=== PATIENT | male | born 1980 | race African-American/Black ===

== ENCOUNTER 2022-09-17 19:00 | Outpatient (CLI) | payer BC | END 2022-09-17 19:01 | disposition home or self-care (01) | LOC: SLEEPLAB 19:00 | PROVIDERS: ATTEND Specialist | DX: G47.33 Obstructive sleep apnea (adult) (pediatric) (principal); F51.9 Sleep disorder not due to a substance or known physiological condition, unspecified; G47.10 Hypersomnia, unspecified; R53.83 Other fatigue; R40.0 Somnolence; R09.89 Other specified symptoms and signs involving the circulatory and respiratory systems; G31.84 Mild cognitive impairment of uncertain or unknown etiology; E66.9 Obesity, unspecified; K21.9 Gastro-esophageal reflux disease without esophagitis; R06.83 Snoring; Z68.36 Body mass index [BMI] 36.0-36.9, adult | CPT/HCPCS: 95811 ==